=== PATIENT | female | born 1990 | race Hispanic/Latino ===

== ENCOUNTER 2017-11-03 05:02 | Emergency (ER) | payer SELFPAY ==
[~2017-11-03] VITALS: Ht 167.6 cm; Wt 131.5 kg
[2017-11-03] MEDS ORDERED: MORPHINE SULFATE 2 MG/ML SYR IV STA (05:44)
[2017-11-03] MEDS ORDERED: KETOROLAC TROMETHAMINE 30 MG/ML VIAL IV STA (05:44)
[2017-11-03] MEDS ORDERED: SODIUM CHLORIDE 0.9% 1000ML 1,000 ML IV STA (05:44)
[2017-11-03] MEDS ORDERED: ONDANSETRON HCL INJ 2 MG/ML VIAL IV STA (05:44)
[2017-11-03 06:10] LABS: BASOPHILS % 0.4 % (0.0-1.0); EOSINOPHILS # (AUTO) 0.3 (0.0-0.4); EOSINOPHILS % 4.4 % (0.0-6.0); HEMATOCRIT 39.1 % (34.2-44.1); HEMOGLOBIN 12.9 g/dL (12.0-16.0); LYMPHOCYTES # (AUTO) 1.8 (1.0-3.2); LYMPHOCYTES % 26.7 % (18.0-39.1); MEAN CORPUSCULAR HEMOGLOBIN 28.2 pg (28-32); MEAN CORPUSCULAR VOLUME 85.4 fL (81-99); MONOCYTES # (AUTO) 0.3 (0.2-0.8); MONOCYTES % 4.9 % (4.4-11.3); NEUTROPHILS # (AUTO) 4.3 (2.1-6.9); NEUTROPHILS % 63.5 % (38.7-80.0); PLATELET COUNT 264 x10e3/uL (140-360); RED BLOOD COUNT 4.58 x10e6/uL (3.6-5.1); RED CELL DISTRIBUTION WIDTH 13.5 % (11.7-14.4)
[2017-11-03 06:20] LABS: CLARITY,URINE CLOUDY (CLEAR); COLOR,URINE YELLOW (YELLOW)
[2017-11-03 06:30] LABS: BILIRUBIN,URINE NEGATIVE (NEGATIVE); KETONES,URINE NEGATIVE (NEGATIVE); LEUKOCYTE ESTERASE ,URINE 2+ (NEGATIVE); NITRITE,URINE NEGATIVE (NEGATIVE); PROTEIN,URINE DIPSTICK TRACE (NEGATIVE); URINE UROBILINOGEN 0.2 mg/dL (0.2 - 1)
[2017-11-03 06:31] LABS: ALANINE AMINOTRANSFERASE 32 IU/L (0-55); ALBUMIN 3.5 g/dL (3.5-5.0); ALBUMIN/GLOBULIN RATIO 0.9 (0.8-2.0); ALKALINE PHOSPHATASE 102 IU/L (40-150); ANION GAP 10.9 mmol/L (8-16); BLOOD UREA NITROGEN 10 mg/dL (7-26); BUN/CREATININE RATIO 13 (6-25); CALCIUM 9.3 mg/dL (8.4-10.2); CARBON DIOXIDE 24 mmol/L (22-29); CHLORIDE 108 mmol/L (98-107); CREATININE, SERUM 0.79 mg/dL (0.57-1.11); EST GLOMERULAR FILTRATION RATE > 60 ML/MIN (60-); GLUCOSE 109 mg/dL (74-118); MAGNESIUM 2.3 MG/DL (1.3-2.1); POTASSIUM 3.9 mmol/L (3.5-5.1); SODIUM 139 mmol/L (136-145)
[2017-11-03 06:38] LABS: BACTERIA,URINE MANY /HPF; EPITHELIAL CELLS,URINE MANY /LPF; RBC,URINE >50 /HPF (0-5); WBC,URINE (MAN) >50 /HPF (0-5)
[2017-11-03] MEDS ORDERED: CEFTRIAXONE SOD 1 GM VIAL IV ONE (06:45)
--- NOTE | 2017-11-03 06:57 | Diagnostic Imaging Report ---
EXAM: CT ABDOMEN/PELVIS WO DATE: 11/03/2017 5:44 AM INDICATION: COMPARISON: None TECHNIQUE: The abdomen and pelvis were scanned using a multidetector helical scanner. Coronal and sagittal reformations were obtained. Routine protocol performed. IV Contrast: 0 ml Isovue 300/370 FINDINGS: Lack of IV contrast decreases sensitivity in evaluating abdominal and pelvic organs. LOWER THORAX: No consolidations LIVER/BILIARY: No masses. No ductal dilatation. GALLBLADDER: Unremarkable SPLEEN: Unremarkable PANCREAS: Unremarkable ADRENALS: No nodules KIDNEYS: No renal calculi. Mild left hydroureteronephrosis related to a 2 to 3 mm mm distal left ureteral calculus. GI TRACT: No wall thickening or evidence of obstruction. Normal appendix. VESSELS: Unremarkable noncontrast appearance PERITONEUM/RETROPERITONEUM: No free air or fluid LYMPH NODES: No lymphadenopathy REPRODUCTIVE ORGANS/BLADDER: Unremarkable. Bladder is decompressed. SOFT TISSUES: Unremarkable BONES: No suspicious bone lesions. IMPRESSION: 2 to 3 mm distal left ureteral calculus results in mild left hydroureteronephrosis. Signed by: Dr Elvia Kang MD on 11/03/2017 6:54 AM
[2017-11-03] MEDS ORDERED: MORPHINE SULFATE 2 MG/ML SYR IV ONE (07:00)
[2017-11-03 08:07] LABS: BILIRUBIN,URINE NEGATIVE (NEGATIVE); CLARITY,URINE CLEAR (CLEAR); COLOR,URINE YELLOW (YELLOW); KETONES,URINE NEGATIVE (NEGATIVE); LEUKOCYTE ESTERASE ,URINE NEGATIVE (NEGATIVE); NITRITE,URINE NEGATIVE (NEGATIVE); PROTEIN,URINE DIPSTICK NEGATIVE (NEGATIVE); URINE UROBILINOGEN 0.2 mg/dL (0.2 - 1)
[2017-11-03 08:13] LABS: BACTERIA,URINE MODERATE /HPF; EPITHELIAL CELLS,URINE FEW /LPF
[2017-11-03] MEDS ORDERED: KETOROLAC TROMETHAMINE 30 MG/ML VIAL IV ONE (09:00)
[2017-11-03] MEDS ORDERED: PROMETHAZINE 12.5MG/ NACL 0.9% 12.5 MG/50 ML BAG IV ONE (09:00)
== END 2017-11-03 08:46 | disposition home or self-care (01) ==
LOC: ER 05:02
DX: R10.32 Left lower quadrant pain (principal); R11.0 Nausea; N30.91 Cystitis, unspecified with hematuria; N20.1 Calculus of ureter
CPT/HCPCS: 36415; 74176; 80053; 81001; 81025; 83735; 85025; 87086; 99284; J0696; J1885; J2270; J2405; J7030

== ENCOUNTER 2018-12-13 02:03 | Emergency (ER) | payer OTHER ==
[~2018-12-13] VITALS: Ht 167.6 cm; Wt 125.2 kg
--- OUTSIDE RECORDS SUMMARY | 2018-12-13 02:06 | XMS REPORT ---
Author Author [facility] Address Unknown Phone Unavailable Care Team Providers Care Lpn Per Diem Name Role Phone Christel ARCOS Unavailable Unavailable Problems This patient has no known problems. Allergies, Adverse Reactions, Alerts This patient has no known allergies or adverse reactions. Medications This patient has no known medications. Results Test Description Test Time Test Comments Text Results Atomic Results Result Comments CT ABDOMEN/PELVIS WO 2017-11-03 06:46:00 [place] [address] Patient Name: BRAYDON ANDERSON MR #: [id number] : 1990 Age/Sex: 27/F Req #: [id number] Adm Physician: Ordered by: SANJAY THOMSON MD Report #: [id number] Location: ER Room/Bed: Procedure: [id number] CT/CT ABDOMEN/PELVIS WO Exam Date: 11/03/17 Exam Time: 0645 REPORT STATUS: Signed EXAM: CT ABDOMEN/PELVIS WO DATE: 11/03/2017 5:44 AM INDICATION: COMPARISON: None TECHNIQUE: The abdomen and pelvis were scanned using a multidetector helical scanner. Coronal and sagittal reformations were obtained. Routine protocol performed. IV Contrast: 0 ml Isovue 300/370 FINDINGS: Lack of IV contrast decreases sensitivity in evaluating abdominal and pelvic organs. LOWER THORAX: No consolidations LIVER/BILIARY: No masses. No ductal dilatation. GALLBLADDER: Unremarkable SPLEEN: Unremarkable PANCREAS: Unremarkable ADRENALS: No nodules KIDNEYS: No renal calculi. Mild left hydroureteronephrosis related to a 2 to 3 mm mm distal left ureteral calculus. GI TRACT: No wall thickening or evidence of obstruction. Normal appendix. VESSELS: Unremarkable noncontrast appearance PERITONEUM/RETROPERITONEUM: No free air or fluid LYMPH NODES: No lymphadenopathy REPRODUCTIVE ORGANS/BLADDER: Unremarkable. Bladder is decompressed. SOFT TISSUES: Unremarkable BONES: No suspicious bone lesions. IMPRESSION: 2 to 3 mm distal left ureteral calculus results in mild left hydroureteronephrosis. Signed by: Dr Ginger Kang MD on 11/03/2017 6:54 AM Dictated By: GINGER KANG MD [id number] Transcribed By: YAIR on 11/03/17 0654 COPY TO: SANJAY THOMSON MD
[2018-12-13] MEDS ORDERED: ONDANSETRON HCL 4 MG ORAL DISINTEGRATING TAB PO ONE (02:15)
[2018-12-13] MEDS ORDERED: ONDANSETRON HCL 4 MG ORAL DISINTEGRATING TAB ONE (02:16)
[2018-12-13 02:37] LABS: BILIRUBIN,URINE NEGATIVE (NEGATIVE); CLARITY,URINE CLOUDY (CLEAR); COLOR,URINE YELLOW (YELLOW); KETONES,URINE NEGATIVE (NEGATIVE); LEUKOCYTE ESTERASE ,URINE TRACE (NEGATIVE); NITRITE,URINE NEGATIVE (NEGATIVE); PROTEIN,URINE DIPSTICK NEGATIVE (NEGATIVE); URINE UROBILINOGEN 0.2 mg/dL (0.2 - 1)
[2018-12-13 02:38] LABS: PREGNANCY TEST, URINE NEGATIVE (NEGATIVE)
[2018-12-13] MEDS ORDERED: KETOROLAC TROMETHAMINE 60 MG/2 ML VIAL IM ONE (02:45)
[2018-12-13 02:51] LABS: BACTERIA,URINE MANY /HPF; EPITHELIAL CELLS,URINE MANY /LPF; MUCUS,URINE FEW (RARE); RBC,URINE >50 /HPF (0-5); TRANSITIONAL EPI CELLS,URINE FEW
--- NOTE | 2018-12-13 03:49 | Diagnostic Imaging Report ---
EXAM: CT Abdomen and Pelvis WITHOUT contrast INDICATION: Left flank pain COMPARISON: Abdominal CT 11/03/2017. TECHNIQUE: Abdomen and pelvis were scanned utilizing a multidetector helical scanner from the lung base to the pubic symphysis without administration of IV contrast. Absence of intravenous contrast decreases sensitivity for detection of focal lesions and vascular pathology. Coronal and sagittal reformations were obtained. Routine protocol was performed. IV CONTRAST: None ORAL CONTRAST: None COMPLICATIONS: None RADIATION DOSE: Total DLP: 917 mGy*cm Estimated effective dose: (DLP x 0.015 x size factor) mSv CTDIvol has been reviewed. It is below the limits set by the Radiation Protocol Committee (RPC). Dose modulation, iterative reconstruction, and/or weight based adjustment of the mA/kV was utilized to reduce the radiation dose to as low as reasonably achievable. FINDINGS: LINES and TUBES: None. LOWER THORAX: Unremarkable HEPATOBILIARY: No focal hepatic lesions. No biliary ductal dilation. GALLBLADDER: No radio-opaque stones or sludge. No wall thickening. SPLEEN: No splenomegaly. PANCREAS: No focal masses or ductal dilatation. ADRENALS: No adrenal nodules KIDNEYS/URETERS: A questionable punctate (approximately 1 mm) calculus in the distal left ureter (series 3 image 140). Proximal to this point there is minimal upstream hydroureteronephrosis. This calculus is likely the punctate calculus which was formally seen in a left renal upper pole calyx on abdominal CT 11/03/2017. GI TRACT: No abnormal distention, wall thickening, or evidence of bowel obstruction. Appendix is normal. PELVIC ORGANS/BLADDER: Urinary bladder is decompressed.. LYMPH NODES: No lymphadenopathy. VESSELS: Unremarkable. PERITONEUM / RETROPERITONEUM: No free air or fluid. BONES: Unremarkable. SOFT TISSUES: There is a fat containing para-umbilical hernia. IMPRESSION: Minimal left hydroureteronephrosis. A punctate hyperdensity in the distal left ureter (approximately 1 mm), may represent an obstructive calculus which was previously seen in a left renal superior pole calyx on 11/03/2017. Signed by: Michael Dejesus DO on 12/13/2018 3:45 AM
[2018-12-13 04:01] VITALS: BP 118/69
== END 2018-12-13 04:15 | disposition home or self-care (01) ==
LOC: ER 02:03
DX: N13.2 Hydronephrosis with renal and ureteral calculous obstruction (principal); N39.0 Urinary tract infection, site not specified; R31.9 Hematuria, unspecified
CPT/HCPCS: 74176; 81001; 81025; 99283; J1885; Q0162